=== PATIENT | female | born 1945 | race Caucasian/White ===

== ENCOUNTER 2018-09-03 11:00 | Inpatient (IN) | payer MEDICARE ==
[~2018-09-03] VITALS: Ht 160 cm; Wt 126.1 kg
[~2018-09-03 11:00] MED LIST: ALDACTONE50 MG PO; ATACAND16 MG PO; ATIVAN1 MG PO; CATAPRES-TTS 31 EA TOP; COMBIVENT INH14.7 GM INH; CYMBALTA60 MG PO; GLUMETZA1000 MG PO; HYDROCODON-ACE1 EA12 PO; LIDODERM700 MG; LIPITOR10 MG PO; LOVAZA1 GM PO; METOPROLOL SUCC50 MG PO; NEURONTIN600 MG PO; NITROSTAT0.4 MG PO; ONGLYZA5 MG PO; PREMARIN0.9 MG PO; PREVACID30 MG PO; RESTASIS1 EACH; SYNTHROID100 MCG PO; VOLTAREN100 GM
[2018-09-03] MEDS ORDERED: ONDANSETRON HCL INJ 2 MG/ML VIAL IV NR (11:10)
[2018-09-03] MEDS ORDERED: PANTOPRAZOLE 40 MG 10ML VIAL IV NR (11:10)
[2018-09-03] MEDS ORDERED: SODIUM CHLORIDE 0.9% 1000ML 1,000 ML IV STA ×2 (11:12→14:22)
[2018-09-03] MEDS ORDERED: DIATRIZOATE MEGL/DIATRIZOA SOD 30 ML BTL PO ONE (11:45)
[2018-09-03 12:13] LABS: BASOPHILS # (AUTO) 0.1 (0.0-0.1); BASOPHILS % 0.3 % (0.0-1.0); HEMATOCRIT 34.5 % (34.2-44.1); HEMOGLOBIN 10.8 g/dL (12.0-16.0); LYMPHOCYTES # (AUTO) 2.1 (1.0-3.2); LYMPHOCYTES % 9.7 % (18.0-39.1); MEAN CORPUSCULAR HEMOGLOBIN 27.4 pg (28-32); MEAN CORPUSCULAR HGB CONC 31.3 g/dL (31-35); MEAN CORPUSCULAR VOLUME 87.6 fL (81-99); MONOCYTES # (AUTO) 1.4 (0.2-0.8); MONOCYTES % 6.2 % (4.4-11.3); NEUTROPHILS # (AUTO) 18.2 (2.1-6.9); NEUTROPHILS % 82.7 % (38.7-80.0); PLATELET COUNT 486 x10e3/uL (140-360); RED BLOOD COUNT 3.94 x10e6/uL (3.6-5.1); RED CELL DISTRIBUTION WIDTH 14.5 % (11.7-14.4)
[2018-09-03] MEDS ORDERED: DOCUSATE SODIU100 MG PO (12:21)
[2018-09-03] MEDS ORDERED: MECLIZINE HCL12.5 MG PO (12:21)
[2018-09-03] MEDS ORDERED: LIPITOR20 MG PO (12:21)
[2018-09-03] MEDS ORDERED: AMARYL4 MG PO (12:21)
[2018-09-03] MEDS ORDERED: XULTOPHY SQ (12:21)
[2018-09-03] MEDS ORDERED: PROMETHAZINE HC25 M1 PO (12:21)
[2018-09-03 12:23] LABS: INR 1.02; PROTHROMBIN TIME 14.3 seconds (11.9-14.5)
[2018-09-03 12:24] LABS: PARTIAL THROMBOPLASTIN TIME 29.7 seconds (23.8-35.5)
[2018-09-03] MEDS ORDERED: PIPER-TAZ 3.375 GM 50 ML IV ONE (12:30)
[2018-09-03] MEDS ORDERED: METRONIDAZOLE 500MG/NS 100ML 100 ML IV ONE (12:30)
[2018-09-03 12:32] LABS: CLARITY,URINE CLEAR (CLEAR); COLOR,URINE YELLOW (YELLOW); LEUKOCYTE ESTERASE ,URINE 1+ (NEGATIVE); NITRITE,URINE POSITIVE (NEGATIVE)
[2018-09-03 12:33] LABS: ALBUMIN 3.1 g/dL (3.5-5.0); ALBUMIN/GLOBULIN RATIO 0.8 (0.8-2.0); ANION GAP 19.5 mmol/L (8-16); CALCIUM 9.6 mg/dL (8.4-10.2); CREATININE, SERUM 1.59 mg/dL (0.57-1.11); MAGNESIUM 1.7 MG/DL (1.3-2.1); POTASSIUM 4.5 mmol/L (3.5-5.1)
[2018-09-03 12:33] LABS: BILIRUBIN,URINE NEGATIVE (NEGATIVE); KETONES,URINE NEGATIVE (NEGATIVE); PROTEIN,URINE DIPSTICK 1+ (NEGATIVE); URINE UROBILINOGEN 0.2 mg/dL (0.2 - 1)
[2018-09-03 12:35] LABS: CREATINE KINASE MB 1.1 ng/mL (0-5.0)
[2018-09-03 12:48] LABS: BACTERIA,URINE MANY /HPF; EPITHELIAL CELLS,URINE FEW /LPF; MUCUS,URINE FEW (RARE); WBC,URINE (MAN) >50 /HPF (0-5)
--- NOTE | 2018-09-03 13:26 | Diagnostic Imaging Report ---
EXAMINATION: CHEST SINGLE (PORTABLE) INDICATION: nausea, vomiting, abdominal pain. COMPARISON: None FINDINGS: TUBES and LINES: None. LUNGS: Lungs are not well inflated. There is mild linear subsegmental atelectasis at the left lung base. There is no evidence of pneumonia or pulmonary edema. PLEURA: No pleural effusion or pneumothorax. HEART AND MEDIASTINUM: The cardiomediastinal silhouette is unremarkable. BONES AND SOFT TISSUES: No acute osseous abnormality. Extensive degenerative changes of the shoulders, left greater than right. UPPER ABDOMEN: No free air under the diaphragm. IMPRESSION: No acute radiographic abnormality. No evidence of free air under the diaphragm. Signed by: Dr. Vladimir Church MD on 09/03/2018 1:23 PM
[2018-09-03] MEDS ORDERED: DEXTROSE 50% SYRINGE 50 ML IV PRN (14:30)
[2018-09-03] MEDS ORDERED: ONDANSETRON HCL INJ 2 MG/ML VIAL IV PRN (14:30)
--- OUTSIDE RECORDS SUMMARY | 2018-09-03 14:37 | XMS REPORT ---
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 Allergies, Adverse Reactions, Alerts This patient has no known allergies or adverse reactions. Medications This patient has no known medications. Results Test Description Test Time Test Comments Text Results Atomic Results Result Comments CHEST SINGLE (PORTABLE) 2018-09-03 13:21:00 [place] [address] Patient Name: ZULEIKA BLANDON MR #: [id number] : 1945 Age/Sex: 73/F Req #: [id number] Adm Physician: Ordered by: LUCIANO NICHOLS MD Report #: [id number] Location: ER Room/Bed: Procedure: [id number] DX/CHEST SINGLE (PORTABLE) Exam Date: 09/03/18 Exam Time: 1221 REPORT STATUS: Signed EXAMINATION: CHEST SINGLE (PORTABLE) INDICAT ION: nausea, vomiting, abdominal pain. COMPARISON: None FINDINGS: TUBES and LINES: None. LUNGS: Lungs are not well inflated. There is mild linear subsegmental atelectasis at the left lung base. There is no evidence of pneumonia or pulmonary edema. PLEURA: No pleural effusion or pneumothorax. HEART AND MEDIASTINUM: The cardiomediastinal silhouette is unremarkable. BONES AND SOFT TISSUES: No acute osseous abnormality. Extensive degenerative changes of the shoulders, left greater than right. UPPER ABDOMEN: No free air under the diaphragm. IMPRESSION: No acute radiographic abnormality. No evidence of free air under the diaphragm. Signed by: Dr. Rodney Oliver MD on 09/03/2018 1:23 PM Dictated By: RODNEY OLIVER MD [id number] Transcribed By: EVERT on 09/03/18 1323 COPY TO: LUCIANO NICHOLS MD
[2018-09-03] MEDS ORDERED: MORPHINE SULFATE INJ 4 MG/ML INJ IV PRN (14:45)
--- NOTE | 2018-09-03 15:36 | Diagnostic Imaging Report ---
EXAM: CT Abdomen and Pelvis WITHOUT contrast INDICATION: Left lower quadrant pain COMPARISON: None. TECHNIQUE: Abdomen and pelvis were scanned utilizing a multidetector helical scanner from the lung base to the pubic symphysis without administration of IV contrast. Absence of intravenous contrast decreases sensitivity for detection of focal lesions and vascular pathology. Coronal and sagittal reformations were obtained. Routine protocol was performed. IV CONTRAST: None. ORAL CONTRAST: Water RADIATION DOSE: Total DLP: 841.2 mGy*cm COMPLICATIONS: None FINDINGS: LINES and TUBES: None. LOWER THORAX: Patchy dependent atelectasis. Mitral annular calcifications. Coronary atherosclerosis. HEPATOBILIARY: No focal hepatic lesions. No biliary ductal dilation. Status post cholecystectomy. SPLEEN: No splenomegaly. PANCREAS: No focal masses or ductal dilatation. ADRENALS: No adrenal nodules KIDNEYS/URETERS: Multiple bilateral nonobstructing renal stones, largest measuring up to 6 mm in the right mid pole and 7 mm in the left lower pole. There is moderate left perinephric stranding. No evidence of hydronephrosis. Somewhat lobulated contour of the left kidney may represent underlying small renal cysts. GI TRACT: No abnormal distention or evidence of bowel obstruction. Appendix is not clearly identified. There is however no fat stranding or adenopathy in the right lower quadrant to suggest appendicitis. Mild apparent wall thickening involving the ascending colon may partially reflect underdistention. PELVIC ORGANS/BLADDER: The bladder is unremarkable. Multiple calcified pelvic phleboliths. LYMPH NODES: No lymphadenopathy. VESSELS: There are scattered atherosclerotic calcifications in the aorta and branch vessels. PERITONEUM / RETROPERITONEUM: No free air or fluid. BONES: Unremarkable. SOFT TISSUES: Large ventral hernia containing small large bowel loops without evidence of obstruction. IMPRESSION: Bilateral nonobstructing renal stones, measuring up to 7 mm on the left. No evidence of hydronephrosis. Moderate left perinephric stranding, which could reflect pyelonephritis or recently passed stone. Mild apparent ascending colonic wall thickening which could represent underdistention, with mild colitis felt to be less likely. Signed by: Dr. Vladimir Church MD on 09/03/2018 3:33 PM
[2018-09-03 16:15] VITALS: BP 124/59
--- NOTE | 2018-09-03 16:17 | NUR ---
PATIENT ARRIVED ON THE UNIT AT 1529 FROM THE ER PER STRETCHER. PATIENT IS ALERT AND IN STABLE CONDITION WITH NO S/S OF RESPIRATORY DISTRESS. NO PAIN VOICED. REDNESS NOTED TO BILATERAL BUTTOCK, MID-BACK, AND LEFT/RIGHT POSTERIOR ANKLES- ALL AREAS ARE BLANCHABLE AT THIS TIME. PATIENT STATED "REDNESS IS DUE TO SITTING AND WAITING DOWNSTAIRS". YEAST RASH NOTED TO BILATERAL LATERAL SIDES OF THE ABD WITH SMALL WOUNDS NOTED. PRESENT IN ROOM. PATIENT REFUSED BED ALARM. CALL LIGHT IS WITHIN REACH, INSTRUCTED TO CALL FOR ASSISTANCE NEEDED. Addendum: 09/05/18 at 1631 by Ray Paul RN WBC9.9 HGB8.9 HCT29.1 NEUT% 66 URINE CX ECOLI +
[2018-09-03 16:23] VITALS: BP 124/59
[2018-09-03] MEDS ORDERED: SPIRONOLACTONE 50 MG PO SCH (16:30)
[2018-09-03] MEDS ORDERED: HYDRALAZINE HCL 20 MG/ML VIAL IV PRN (16:30)
[2018-09-03] MEDS ORDERED: ACETAMINOPHEN 325 MG TAB PO PRN (16:30)
[2018-09-03] MEDS ORDERED: LORAZEPAM 1 MG TAB PO PRN (16:30)
[2018-09-03] MEDS: INSULIN LISPRO 100 UNIT/1 ML 3ML VIAL SQ SCH ×2 (16:30→20:38)
[2018-09-03] MEDS ORDERED: LEVAQUIN500 MG PO (16:45)
[2018-09-03 16:47] VITALS: BP 124/59
[2018-09-03] MEDS ORDERED: DOCUSATE SODIUM 100 MG CAP PO SCH (17:00)
[2018-09-03] MEDS ORDERED: NON-FORMULARY MEDICATION (Glimepiride (Amaryl) 4 MG) PO SCH (17:00)
[2018-09-03] MEDS ORDERED: NON-FORMULARY MEDICATION (Duloxetine Hcl (Cymbalta) 60 MG) PO SCH (17:00)
[2018-09-03 17:06] LABS: OCCULT BLOOD STOOL NEGATIVE (NEGATIVE)
[2018-09-03] MEDS: SODIUM CHLORIDE 0.9% 1000ML 1,000 ML IV SCH (17:21)
[2018-09-03] MEDS: GABAPENTIN 300 MG CAP PO SCH ×2 (17:21→20:39)
[2018-09-03] MEDS: GLIMEPIRIDE 2 MG TAB PO SCH (17:21)
[2018-09-03] MEDS: DULOXETINE HCL 30 MG DELAYED RELEASE PO SCH (17:21)
[2018-09-03] MEDS: PIPERACILLIN/TAZO 2.25 GM 50 ML IV SCH ×2 (17:21→23:43)
[2018-09-03] MEDS ORDERED: GABAPENTIN 600 MG PO SCH (18:00)
[2018-09-03] MEDS: METRONIDAZOLE 500MG/NS 100ML 100 ML IV SCH ×2 (18:12→23:43)
--- NOTE | 2018-09-03 18:41 | NUR ---
INFORMED N.P. OF LACTIC ACIF OF 37.1- NO NEW ORDERS RECEIVED. INFORMED N.P. OF COLACE AND PATIENT'S REQUEST FOR MEDICATION TO HELP WITH THE DIARRHEA- NEW ORDERS RECEIVED.
--- NOTE | 2018-09-03 19:15 | NUR ---
patient recieved awake, alert, lying quietly in bed. vss. no c/o pain noted. ivf continue to infuse without difficulty. pm assessment complete. patient instructed to call for assistance when needed.
--- NOTE | 2018-09-03 19:22 | NUR ---
PATIENT IS IN STABLE CONDITION WITH NO S/S OF RESPIRATORY DISTRESS. PAIN MEDICATION RECENTLY GIVEN TO PATIENT. BED ALARM APPLIED. IV ANTIBIOTIC INFUSING. CALL LIGHT IS WITHIN REACH, INSTRUCTED TO CALL FOR ASSISTANCE NEEDED. REPORT GIVEN TO ONCOMING NURSE.
[2018-09-03 19:55] LABS: CREATINE KINASE 117 IU/L (29-168)
[2018-09-03 20:00] VITALS: BP 108/51
[2018-09-03] MEDS ORDERED: CHOLESTYRAMINE 4 GM PACKET PO SCH (20:00)
[2018-09-03] MEDS: METOPROLOL SUCCINATE 50 MG TAB XL PO SCH (20:39)
[2018-09-03] MEDS ORDERED: SPIRONOLACTONE 25 MG TAB PO SCH (21:00)
[2018-09-03 21:16] VITALS: BP 108/51
[2018-09-03] MEDS: HYDROCODONE/APAP 7.5MG-325MG 1 EA TAB PO PRN (21:28)
--- NOTE | 2018-09-03 21:28 | NUR ---
patient medicated with norco 7.5/325 mg po for c/o lower back pain 01/30.
[2018-09-04] VITALS (8 sets, daily range): BP systolic 99–133; BP diastolic 52–64
--- NOTE | 2018-09-04 | NUR ---
patient appears to be resting quietly. no c/o pain noted at this time.
[2018-09-04] MEDS: HYDROCODONE/APAP 7.5MG-325MG 1 EA TAB PO PRN ×2 (01:35→06:14)
--- NOTE | 2018-09-04 01:35 | NUR ---
patient medicated with norco 7.5/325 mg po for c/o lower back pain 01/30.
[2018-09-04 03:04] LABS: BASOPHILS # (AUTO) 0.1 (0.0-0.1); BASOPHILS % 0.3 % (0.0-1.0); EOSINOPHILS % 0.2 % (0.0-6.0); HEMOGLOBIN 9.5 g/dL (12.0-16.0); LYMPHOCYTES # (AUTO) 2.5 (1.0-3.2); LYMPHOCYTES % 15.6 % (18.0-39.1); MEAN CORPUSCULAR HEMOGLOBIN 27.4 pg (28-32); MEAN CORPUSCULAR HGB CONC 31.7 g/dL (31-35); MEAN CORPUSCULAR VOLUME 86.5 fL (81-99); MONOCYTES # (AUTO) 1.4 (0.2-0.8); MONOCYTES % 8.5 % (4.4-11.3); NEUTROPHILS # (AUTO) 12.1 (2.1-6.9); PLATELET COUNT 403 x10e3/uL (140-360); RED BLOOD COUNT 3.47 x10e6/uL (3.6-5.1); RED CELL DISTRIBUTION WIDTH 14.6 % (11.7-14.4)
[2018-09-04 03:22] LABS: ALBUMIN 2.7 g/dL (3.5-5.0); ALBUMIN/GLOBULIN RATIO 0.7 (0.8-2.0); ANION GAP 13.2 mmol/L (8-16); CALCIUM 8.8 mg/dL (8.4-10.2); CREATININE, SERUM 1.49 mg/dL (0.57-1.11); POTASSIUM 4.2 mmol/L (3.5-5.1)
[2018-09-04 03:26] LABS: MAGNESIUM 1.5 MG/DL (1.3-2.1)
[2018-09-04 03:29] LABS: CREATINE KINASE MB 1.5 ng/mL (0-5.0)
[2018-09-04 03:30] LABS: B-TYPE NATRIURETIC PEPTIDE2 68.1 pg/mL (0-100)
[2018-09-04 03:54] LABS: FREE T4 (FREE THYROXINE) 0.97 ng/dL (0.9-1.8); THYROID STIMULATING HORMONE 2.53 uIU/mL (0.350-4.940)
[2018-09-04] MEDS: SODIUM CHLORIDE 0.9% 1000ML 1,000 ML IV SCH ×3 (05:15→19:25)
[2018-09-04] MEDS: LEVOTHYROXINE SODIUM 100 MCG TAB PO SCH (05:16)
[2018-09-04] MEDS: METRONIDAZOLE 500MG/NS 100ML 100 ML IV SCH ×3 (05:16→17:06)
[2018-09-04] MEDS: PIPERACILLIN/TAZO 2.25 GM 50 ML IV SCH ×3 (05:16→18:18)
--- NOTE | 2018-09-04 07:16 | NUR ---
PATIENT IS IN STABLE CONDITION WITH NO S/S OF RESPIRATORY DISTRESS. PAIN MEDICATION RECENTLY GIVEN AND PATIENT STATES LOWER EXTREMITY PAIN IS CURRENTLY 4/10. IV FLUIDS INFUSING. BED ALARM APPLIED. PRESENT IN ROOM. CALL LIGHT IS WITHIN REACH, INSTRUCTED TO CALL FOR ASSISTANCE NEEDED
[2018-09-04] MEDS: INSULIN LISPRO 100 UNIT/1 ML 3ML VIAL SQ SCH ×4 (07:30→21:16)
[2018-09-04] MEDS ORDERED: CHOLESTYRAMINE 4 GM PACKET PO PRN (07:45)
[2018-09-04] MEDS: PANTOPRAZOLE 40 MG 10ML VIAL IV SCH (08:27)
[2018-09-04] MEDS: GLIMEPIRIDE 2 MG TAB PO SCH ×2 (08:30→16:04)
[2018-09-04] MEDS: SPIRONOLACTONE 25 MG TAB PO SCH ×2 (08:30→16:04)
[2018-09-04] MEDS: DULOXETINE HCL 30 MG DELAYED RELEASE PO SCH ×2 (08:30→16:04)
[2018-09-04] MEDS: ATORVASTATIN 20 MG TAB PO SCH (08:31)
[2018-09-04] MEDS: GABAPENTIN 300 MG CAP PO SCH ×4 (08:31→21:13)
[2018-09-04] MEDS ORDERED: PANTOPRAZOLE SOD 40 MG TABEC PO SCH (09:00)
[2018-09-04] MEDS: NYSTATIN 15 GM POWDER UD BTL TOP SCH ×2 (11:26→18:18)
[2018-09-04 15:22] LABS: C DIFFICILE TOXIN A&B AMP PROB NEGATIVE (NEGATIVE)
--- NOTE | 2018-09-04 19:11 | NUR ---
PATIENT IS IN STABLE CONDITION WITH NO S/S OF RESPIRATORY DISTRESS. NO PAIN VOICED. TYLENOL GIVEN EARLIER FOR HEADACHE. IV FLUIDS INFUSING. PRESENT IN ROOM. CALL LIGHT IS WITHIN REACH, INSTRUCTED TO CALL FOR ASSISTANCE NEEDED. REPORT GIVEN TO ONCOMING NURSE.
--- NOTE | 2018-09-04 19:13 | NUR ---
PT IS RESTING IN BED. NO RESPIRATORY DISTRESS NOTED. BED IN THE LOWEST POSITION, LOCKED, AND CALL LIGHT WITHIN REACH. WILL CONTINUE TO MONITOR.
[2018-09-04] MEDS: METOPROLOL SUCCINATE 50 MG TAB XL PO SCH (21:13)
[2018-09-05] VITALS (9 sets, daily range): BP systolic 100–158; BP diastolic 53–72
[2018-09-05] MEDS: METRONIDAZOLE 500MG/NS 100ML 100 ML IV SCH ×4 (00:02→18:06)
[2018-09-05] MEDS: HYDROCODONE/APAP 7.5MG-325MG 1 EA TAB PO PRN ×4 (00:02→20:12)
[2018-09-05] MEDS: PIPERACILLIN/TAZO 2.25 GM 50 ML IV SCH ×5 (01:05→23:23)
[2018-09-05 03:35] LABS: BASOPHILS # (AUTO) 0.1 (0.0-0.1); BASOPHILS % 0.5 % (0.0-1.0); EOSINOPHILS # (AUTO) 0.2 (0.0-0.4); EOSINOPHILS % 2.2 % (0.0-6.0); HEMATOCRIT 29.1 % (34.2-44.1); HEMOGLOBIN 8.9 g/dL (12.0-16.0); LYMPHOCYTES # (AUTO) 2.2 (1.0-3.2); LYMPHOCYTES % 21.5 % (18.0-39.1); MEAN CORPUSCULAR HEMOGLOBIN 27.1 pg (28-32); MEAN CORPUSCULAR HGB CONC 30.6 g/dL (31-35); MEAN CORPUSCULAR VOLUME 88.4 fL (81-99); MONOCYTES % 9.5 % (4.4-11.3); NEUTROPHILS # (AUTO) 6.6 (2.1-6.9); PLATELET COUNT 370 x10e3/uL (140-360); RED BLOOD COUNT 3.29 x10e6/uL (3.6-5.1); RED CELL DISTRIBUTION WIDTH 14.6 % (11.7-14.4)
[2018-09-05 03:47] LABS: CALCIUM 8.9 mg/dL (8.4-10.2); CREATININE, SERUM 1.24 mg/dL (0.57-1.11); MAGNESIUM 1.6 MG/DL (1.3-2.1)
[2018-09-05] MEDS: LEVOTHYROXINE SODIUM 100 MCG TAB PO SCH (05:06)
--- NOTE | 2018-09-05 06:55 | NUR ---
PT IS RESTING IN BED. NO RESPIRATORY DISTRESS NOTED. BED IN LOWEST POSITION, LOCKED, AND CALL LIGHT WITHIN REACH. WALKING ROUNDS COMPLETED WITH ONCOMING NURSE.
[2018-09-05] MEDS: INSULIN LISPRO 100 UNIT/1 ML 3ML VIAL SQ SCH ×4 (07:30→21:39)
--- NOTE | 2018-09-05 07:30 | NUR ---
RECD PT UP IN CHAIR DENIES PAIN,NO DISTRESS NTKWAME SARAVIA HERE
[2018-09-05] MEDS: DULOXETINE HCL 30 MG DELAYED RELEASE PO SCH ×2 (08:00→17:00)
[2018-09-05] MEDS: GABAPENTIN 300 MG CAP PO SCH ×4 (08:00→20:12)
[2018-09-05] MEDS: ASCORBIC ACID 500 MG TAB PO SCH ×2 (08:00→17:00)
[2018-09-05] MEDS: PANTOPRAZOLE 40 MG 10ML VIAL IV SCH (08:00)
[2018-09-05] MEDS: FERROUS SULFATE 325 MG TAB PO SCH ×2 (08:00→17:00)
[2018-09-05] MEDS: SPIRONOLACTONE 25 MG TAB PO SCH ×2 (08:00→17:00)
[2018-09-05] MEDS: ATORVASTATIN 20 MG TAB PO SCH (08:00)
[2018-09-05] MEDS: GLIMEPIRIDE 2 MG TAB PO SCH ×2 (08:00→16:30)
[2018-09-05] MEDS: ALBUTEROL/IPRATROPIUM 3 ML NEB NEB PRN ×2 (09:26→19:19)
--- NOTE | 2018-09-05 16:09 | NUR ---
WOUND CARE CONSULTATION- INITIAL EVALUATION - PATIENT ADMITTED FOR DEHYDRATION AND IS ON LIQUID DIET. - WOUND CARE CONSULTED FOR ABD WOUND EVALUATION - IMPRESSION: -ABDOMINAL FOLDS, BILATERAL GROIN, AND LEFT BREAST FOLD- WEEPING RASH CONSISTENT WITH S&S YEAST - PATIENT CURRENTLY ON NYSTATIN POWDER - PATIENT VERBALIZES ITS RECURRENT AND HAS BEEN STRUGGLING WITH IT FOR SOMETIME. - EDUCATION PROVIDED FOR YEAST PREVENTION AND MANAGEMENT TO PATIENT AND SPOUSE. BOTH VERBALIZED UNDERSTANDING. - NO PRESSURE ULCERS IDENTIFIED - PATIENT STATES TO AMBULATE TO BATHROOM WITH ASSISTANCE AND ABLE TO TURN SELF IN BED WITH MIN ASSISTANCE. RECOMMENDATION: 1. CONTINUE NYSTATIN POWDER TO ABDOMINAL FOLDS, BILATERAL GROIN, AND BILATERAL BREAST FOLDS TWICE A DAY. 2. CONTINUE CONSERVATIVE PUP MANAGEMENT. Addendum: 09/05/18 at 1618 by Ray Paul RN Amended: Links added.
[2018-09-05] MEDS: NYSTATIN 15 GM POWDER UD BTL TOP SCH ×2 (16:42→17:00)
--- NOTE | 2018-09-05 18:06 | NUR ---
PT UP IN BED NO DISTRESS NTOED ,DENIES PAIN .NEB TX GIVEN
--- NOTE | 2018-09-05 19:00 | NUR ---
Patient visited in bed during nursing rounds. No distress noted. at bedside. Pt states she has chronic lower back pain. IVF (NS@50ml/hr) running. On 2L NC. Call hollins within reach. Will monitor closely.
[2018-09-05] MEDS: SODIUM CHLORIDE 0.9% 1000ML 1,000 ML IV SCH (20:12)
[2018-09-05] MEDS: METOPROLOL SUCCINATE 50 MG TAB XL PO SCH (22:00)
[2018-09-06] VITALS: BP 139/64
[2018-09-06] MEDS: METRONIDAZOLE 500MG/NS 100ML 100 ML IV SCH ×2 (00:24→06:20)
[2018-09-06] MEDS: HYDROCODONE/APAP 7.5MG-325MG 1 EA TAB PO PRN (00:48)
[2018-09-06 04:00] VITALS: BP 131/67
[2018-09-06 04:10] LABS: BASOPHILS # (AUTO) 0.1 (0.0-0.1); BASOPHILS % 0.6 % (0.0-1.0); EOSINOPHILS # (AUTO) 0.2 (0.0-0.4); EOSINOPHILS % 2.9 % (0.0-6.0); HEMATOCRIT 27.2 % (34.2-44.1); HEMOGLOBIN 8.5 g/dL (12.0-16.0); LYMPHOCYTES # (AUTO) 1.9 (1.0-3.2); LYMPHOCYTES % 22.6 % (18.0-39.1); MEAN CORPUSCULAR HEMOGLOBIN 27.2 pg (28-32); MEAN CORPUSCULAR HGB CONC 31.3 g/dL (31-35); MEAN CORPUSCULAR VOLUME 86.9 fL (81-99); MONOCYTES # (AUTO) 0.8 (0.2-0.8); MONOCYTES % 9.3 % (4.4-11.3); NEUTROPHILS # (AUTO) 5.3 (2.1-6.9); NEUTROPHILS % 64.2 % (38.7-80.0); PLATELET COUNT 396 x10e3/uL (140-360); RED BLOOD COUNT 3.13 x10e6/uL (3.6-5.1)
[2018-09-06 04:35] LABS: ANION GAP 12.7 mmol/L (8-16); CALCIUM 8.9 mg/dL (8.4-10.2); CREATININE, SERUM 1.06 mg/dL (0.57-1.11); MAGNESIUM 1.4 MG/DL (1.3-2.1); POTASSIUM 3.7 mmol/L (3.5-5.1)
[2018-09-06 04:58] LABS: FERRITIN 104.25 ng/mL (4.63-204.00)
[2018-09-06 05:11] LABS: FOLATE 5.7 ng/mL (7.0-15.4)
--- NOTE | 2018-09-06 05:26 | NUR ---
Patient sleeping comfortably. Call hollins within reach.
[2018-09-06] MEDS: PIPERACILLIN/TAZO 2.25 GM 50 ML IV SCH (05:45)
[2018-09-06] MEDS: LEVOTHYROXINE SODIUM 100 MCG TAB PO SCH (06:23)
[2018-09-06] MEDS ORDERED: CEFTIN PO (07:02)
[2018-09-06] MEDS ORDERED: FLAGYL500 MG PO (07:02)
[2018-09-06] MEDS ORDERED: FOLIC ACID1 MG PO (07:02)
[2018-09-06] MEDS ORDERED: ASCORBIC ACID500 MG PO (07:02)
[2018-09-06] MEDS ORDERED: FERROUS SULFAT325 MG PO (07:02)
[2018-09-06] MEDS ORDERED: NYAMYC15 GM TOP (07:12)
--- NOTE | 2018-09-06 07:30 | NUR ---
pt up in bed awake,denies pain,douglas cervantes here
[2018-09-06 07:54] VITALS: BP 132/64
[2018-09-06] MEDS: INSULIN LISPRO 100 UNIT/1 ML 3ML VIAL SQ SCH (08:00)
[2018-09-06] MEDS: GLIMEPIRIDE 2 MG TAB PO SCH (08:00)
[2018-09-06] MEDS: FERROUS SULFATE 325 MG TAB PO SCH (08:00)
[2018-09-06] MEDS: PANTOPRAZOLE 40 MG 10ML VIAL IV SCH (09:00)
[2018-09-06] MEDS: DULOXETINE HCL 30 MG DELAYED RELEASE PO SCH (09:00)
[2018-09-06] MEDS: ASCORBIC ACID 500 MG TAB PO SCH (09:00)
[2018-09-06] MEDS: ATORVASTATIN 20 MG TAB PO SCH (09:00)
[2018-09-06] MEDS ORDERED: FOLIC ACID 1 MG TAB PO SCH (09:00)
[2018-09-06] MEDS: SPIRONOLACTONE 25 MG TAB PO SCH (09:00)
[2018-09-06] MEDS: GABAPENTIN 300 MG CAP PO SCH (09:00)
--- NOTE | 2018-09-06 09:00 | NUR ---
PT DISCHARGED HOME ,IV DCD WITHOUT REDNESS OR SWELLING,PESCRIPTIONS AND INSTRUCTIONS GIVEN CO[Y ON CHARTTRANSPORTED TO AUTO VIA W/C
--- NOTE | 2018-09-06 16:52 | Discharge Summary ---
NO DICTATION, LENGTH 3 MINUTES 8 SECONDS. KENNETH MURPHY MD Job#: [id number]
== END 2018-09-06 09:01 | disposition home or self-care (01) | DRG 872 ==
LOC: ER 11:00 → ERHOLD 14:34 → MED/SURG3 15:15
PROVIDERS: ADMIT Internal Medicine; ATTEND Internal Medicine
DX: A41.9 Sepsis, unspecified organism (principal); N39.0 Urinary tract infection, site not specified; N17.9 Acute kidney failure, unspecified; E87.1 Hypo-osmolality and hyponatremia; E86.0 Dehydration; I10 Essential (primary) hypertension; E11.9 Type 2 diabetes mellitus without complications; E03.9 Hypothyroidism, unspecified; F32.9 Major depressive disorder, single episode, unspecified; D64.9 Anemia, unspecified; R65.20 Severe sepsis without septic shock; B37.2 Candidiasis of skin and nail; Z79.4 Long term (current) use of insulin
CPT/HCPCS: 36415; 71045; 74176; 80048; 80053; 81001; 82270; 82550; 82553; 82607; 82728; 82746; 82948; 83036; 83540; 83605; 83690; 83735; 83880; 84439; 84443; 84466; 84484; 85025; 85610; 85730; 87040; 87086; 87186; 87400; 87493; 94640; 99284; J2270; J2405; J2543; J7030